=== PATIENT | male | born 1995 | race African-American/Black ===

== ENCOUNTER 2021-03-28 17:22 | Emergency (ER) | payer MEDICAID ==
[~2021-03-28] VITALS: Ht 193 cm; Wt 113.0 kg
[2021-03-28] MEDS ORDERED: KETOROLAC 30MG/ML VIAL IV STA (18:21)
[2021-03-28] MEDS ORDERED: ONDANSETRON HCL 4MG/2ML INJ IV STA (18:21)
[2021-03-28] MEDS ORDERED: SODIUM CHLORIDE 0.9% 1,000 ML IV ONE (18:30)
[2021-03-28 19:01] LABS: HEMATOCRIT. 49.7 % (42.0-52.0); HEMOGLOBIN. 16.8 g/dL (14.0-18.0); MEAN CORPUSCULAR VOLUME 88.7 fL (80.0-94.0); MEAN PLATELET VOLUME 8.6 fl (7.4-10.4); PLATELET 288 x1000/uL (130-400); RED CELL DISTRIBUTION WIDTH 12.5 % (11.6-14.6)
[2021-03-28 19:08] LABS: CHLORIDE 106 mEq/L (98-107)
[2021-03-28 19:11] LABS: ETHANOL BLOOD < 10 mg/dL
[2021-03-28 19:27] LABS: PLATELET ESTIMATE NORMAL
[2021-03-28 19:50] VITALS: BP 129/81
== END 2021-03-28 19:58 | disposition left against medical advice (07) ==
LOC: ER 17:22
DX: R10.32 Left lower quadrant pain (principal); K57.30 Diverticulosis of large intestine without perforation or abscess without bleeding; K40.20 Bilateral inguinal hernia, without obstruction or gangrene, not specified as recurrent; K44.9 Diaphragmatic hernia without obstruction or gangrene
CPT/HCPCS: 36415; 74176; 80053; 80320; 83690; 85025; 99284; J7030; G0480